=== PATIENT | male | born 1950 | race Caucasian/White ===

== ENCOUNTER 2019-09-30 12:41 | Emergency (ER) | payer OTHER ==
[2019-09-30] MEDS ORDERED: NA CHLORIDE 0.9% 1,000 ML ONE (12:54)
[2019-09-30] MEDS ORDERED: VANCOMYCIN/NS 1 gm 1 GM/250 ML BAG IVPB ONE (13:00)
[2019-09-30 13:09] LABS: Protime INR 1.26
[2019-09-30 13:15] LABS: Urine Blood 1+ (NEG); Urine Glucose NEGATIVE (NEG); Urine Protein 2+ (NEG); Urine Specific Gravity 1.025 (1.005-1.030); Urine pH 5.5 (5.0-7.0)
[2019-09-30 13:16] LABS: Absolute Lymphocytes (CBC) 0.6 K/uL (0.7-4.9); Basophils % 0.2 % (0-1.3); Hematocrit 38.9 % (39.6-49.0); Lymphocytes % 2.2 % (15.3-44.8); MPV 7.9 fL (7.6-11.3); RBC Red Blood Cell Count 3.79 M/uL (4.33-5.43)
[2019-09-30 13:29] LABS: Urine Amorphous Sediment 1+ /HPF (NONE SEEN); Urine Bacteria <20 /HPF (NONE SEEN); Urine Culture Reflex Order NOT NEEDED; Urine Mucus 1+ /HPF (NONE SEEN); Urine RBC <5 /HPF (NONE SEEN)
[2019-09-30 13:31] LABS: Albumin 2.3 g/dL (3.4-5.0); Bilirubin Direct 0.5 mg/dL (0-0.2); Bilirubin Total 1.3 mg/dL (0.2-1.0); CKMB Creatine Kinase MB 6.5 ng/mL (0.3-3.6); Protein, Total 7.2 g/dL (6.4-8.2); Troponin (Emerg Dept Use Only) 0.05 ng/mL (0.0-0.045)
[2019-09-30 13:42] LABS: Blood Morphology Comment NOT SEEN (NOT SEEN); Platelet Estimate INCR
--- NOTE | 2019-09-30 14:18 | RAD REPORT ---
EXAM DESCRIPTION: Anne Single View09/30/2019 1:47 pm CLINICAL HISTORY: Congestion COMPARISON: None FINDINGS: The lungs appear clear of acute infiltrate. The heart is mildly enlarged. Postsurgical changes involve the chest. IMPRESSION: No acute abnormalities displayed
--- NOTE | 2019-09-30 14:53 | RAD REPORT ---
EXAM DESCRIPTION: Nahed Goldberg Left09/30/2019 2:48 pm CLINICAL HISTORY: Left leg pain FINDINGS: No fracture is seen. Soft tissue swelling. No air visualized
--- NOTE | 2019-09-30 14:53 | RAD REPORT ---
EXAM DESCRIPTION: RAD - Tib Fib Right - 09/30/2019 2:48 pm CLINICAL HISTORY: Right leg pain FINDINGS: No fracture is seen. Soft tissue swelling. No air visualized
--- NOTE | 2019-09-30 14:54 | RAD REPORT ---
EXAM DESCRIPTION: RAD - Foot Left 2 View - 09/30/2019 2:48 pm CLINICAL HISTORY: Left Foot pain FINDINGS: No or dislocation fracture is seen. Soft tissue swelling. No air visualized .
--- NOTE | 2019-09-30 14:55 | RAD REPORT ---
EXAM DESCRIPTION: RAD - Foot Right 2 View - 09/30/2019 2:48 pm CLINICAL HISTORY: Right foot pain FINDINGS: No or dislocation fracture is seen. Soft tissue swelling. No air visualized
[2019-09-30] MEDS ORDERED: PIPER/TAZO/NS 3.375gm 3.375 GM/100 ML BAG ONE (14:56)
[2019-09-30] MEDS ORDERED: CLINDAMYCIN 600MG/D5W 600 MG/50 ML BAG IV ONE (14:56)
[2019-09-30 15:05] LABS: Arterial Blood Carboxyhemoglob 1.2 % (0-1.5); Blood Gas Oxyhemoglobin 31.5 % (94-97); Blood O2 Saturation 32.1 % (92-98.5)
--- NOTE | 2019-09-30 17:05 | RAD REPORT ---
EXAM DESCRIPTION: Yanci Ext Angio09/30/2019 3:43 pm CLINICAL HISTORY: Bilateral lower extremity swelling and pain TECHNIQUE: One hundred cc Isovue [address] angiogram of the lower extre mities performed. 3D MIP reconstruction performed All CT scans are performed using dose optimization technique as appropriate and may include automated exposure control or mA/KV adjustment according to patient size. FINDINGS: Mild to moderate calcified plaque abdominal aorta. Moderate calcified plaque common and external iliac arteries. Most of the right superficial femoral and right popliteal arteries are occluded. Collaterals reconsti tute the right posterior tibial, right dorsalis pedis and right peroneal arteries. The arteries are thready Calcified plaque is scattered throughout the left superficial femoral and left popliteal arteries res ulting in several high-grade stenoses. The left posterior tibial and left dorsalis pedis arteries are patent. The left peroneal artery is th ready High-grade stenosis iliac artery Diffuse edema throughout the subcutaneous tissues of lower extremities bilaterally. Small to moderate amount of ascites within the pelvis IMPRESSION: Occlusion of most of the right superficial femoral and right popliteal arteries Calcified plaque resulting in high-grade stenoses of portions of the left superficial femoral and lef t popliteal arteries
--- NOTE | 2019-09-30 17:36 | ER ---
Nurse's Notes [facility] Name: Navi Gutierrez Age: 69 yrs Sex: Male : 1950 Arrival Date: 09/30/2019 Time: 12:47 Bed 2 Private MD: Diagnosis: Sepsis, unspecified organism;Altered mental status, unspecified;Acute embolism and thrombosis of femoral vein-right sided Presentation: 09/29 12:40 Chief complaint: EMS states: found on bathroom floor by brother. Pt is cold and pale. ss Awake, but very weak. Ebola Screen:. Onset of symptoms is unknown. 12:40 Method Of Arrival: EMS: [facility] ss 12:40 Acuity: LATISHA 1 ss 12:40 Chief complaint: EMS states: Pt was hypotensive with SBP 70s, tachycardic in the 120s. sv Coronavirus screen: Surgical mask placed on patient. Patient moved to private room, placed in contact and droplet isolation with eye protection until further assessment. Unknown if any of these apply. Pt is altered. Initial Sepsis Screen: Does the patient meet any 2 criteria? RR > 20 per min. Altered Mental Status. HR > 90 bpm. Yes Does the patient have a suspected source of infection? Yes: Skin breakdown/wound. Risk Assessment: Do you want to hurt yourself or someone else? Unable to obtain. Triage Assessment: 12:40 General: Appears in no apparent distress. uncomfortable, unkempt, Behavior is sv cooperative, drowsy. Pain: Complains of pain in right leg and left leg. Neuro: Level of Consciousness is confused, lethargic, Oriented to person, Weakness in bilateral leg(s). Cardiovascular: Pulses are palpable in right radial artery and left radial artery Edema is 2+ to left midcalf, left ankle, left foot, right midcalf, right ankle and right foot Rhythm is sinus tachycardia. Respiratory: Airway is patent Respiratory effort is labored, with retractions, weak, Respiratory pattern is tachypnea the patient has severe shortness of breath. GI: Abdomen is round distended, Abd is soft and non tender X 4 quads. Derm: Skin with poor turgor Skin is dry, Skin is mottled, pale, Skin temperature is cool Bruising that is dark purple, on right leg and left leg BLE weeping. Musculoskeletal: Swelling present in right leg and left leg. Historical: - Allergies: 13:22 Unable to obtain; sv - PMHx: 13:22 CHF; sv - Immunization history:: Adult Immunizations unknown. - Social history:: Patient/guardian denies using alcohol, street drugs, The patient lives with family, Smoking status: unknown. - Family history:: not pertinent. Screenin:22 Abuse screen: Unable to obtain. Nutritional screening: Unable to obtain . Tuberculosis sv screening: Unable to obtain . Fall Risk No fall in past 12 months (0 pts). Secondary diagnosis (15 points) AMS. IV access (20 points). Ambulatory Aid- None/Bed Rest/Nurse Assist (0 pts). Gait- Normal/Bed Rest/Wheelchair (0 pts) Mental Status- Overestimates/Forgets Limitations (15 pts.). Total Alberto Fall Scale indicates High Risk Score (45 or more points). Fall prevention measures have been instituted. Side Rails Up X 2 Placed Close to Nursing Station Frequent Obs/Assessments Occuring As available patient and family educated on Fall Prevention Program and Strategies. Assessment: 12:57 Reassessment: COVID-19 obtained. sv 13:05 Reassessment: Called Dr Crystal to the room. Discussed possible intubation d/t pt being sv tachycardic, tachypneic, mottled throughout his body, hx of CHF and the amount of fluids to be given to him. Provider does not wish to intubate at this time, will continue to monitor. 14:15 Reassessment: Leg xrays being done at this time. sv 15:25 Reassessment: Informed Dr Crystal that the pt's legs are more edematous than before. sv Pt's fluids have finished infusing. 15:25 General: Appears in no apparent distress. uncomfortable, Behavior is calm, cooperative. sv Pain: Complains of pain in right leg and left leg. Neuro: Level of Consciousness is awake, alert, obeys commands, Oriented to person, place, time. Cardiovascular: Rhythm is sinus tachycardia. Respiratory: Airway is patent Respiratory effort is even, shallow, Respiratory pattern is symmetrical, tachypnea. 16:30 Reassessment: Patient appears in no apparent distress at this time. Patient and/or sv family updated on plan of care and expected duration. Pain level reassessed. Pt's BLE have increased swelling, purple and red discoloration. Dr Crystal informed. 17:22 Reassessment: Patient appears in no apparent distress at this time. Patient and/or sv family updated on plan of care and expected duration. Pain level reassessed. 18:22 Reassessment: Patient appears in no apparent distress at this time. Patient and/or sv family updated on plan of care and expected duration. Pain level reassessed. Pt able to carry more of a conversation with staff and is more alert. Pt stated that it was ok to let his daughter know where he is being transferred. 18:49 Reassessment: Juli Manzo (sister) [phone]. She stated that he is a daily sv alcoholic drinker. 18:58 Reassessment: Report given to [facility]. sv 09/30 11:34 Reassessment: COVID results faxed to [facility] ICU ATTN Eula. ss Vital Signs: 09/29 12:40 BP 103 / 74; Pulse 136; Resp 40; Temp 97.4(TE); Pulse Ox 100% on R/A; ss 13:10 Weight 84.82 kg; ph 13:15 BP 169 / 58; Pulse 127; Resp 42; Temp 99.5(C); Pulse Ox 99% on R/A; sv 13:45 BP 107 / 61; Pulse 121; Resp 36; Pulse Ox 100% on R/A; sv 14:00 BP 110 / 65; Pulse 120; Resp 39; Pulse Ox 100% ; sv 14:30 BP 107 / 66; Pulse 118; Resp 39; Temp 98.9(C); Pulse Ox 100% ; sv 15:00 BP 107 / 70; Pulse 115; Resp 34; Pulse Ox 100% ; sv 15:45 BP 130 / 78; Pulse 117; Resp 35; Temp 99.1(C); Pulse Ox 100% ; sv 16:15 BP 148 / 67; Pulse 119; Resp 37; Pulse Ox 99% ; sv 16:45 BP 117 / 86; Pulse 117; Resp 38; Pulse Ox 98% ; sv 17:00 BP 129 / 82; Pulse 116; Resp 38; Pulse Ox 97% ; sv 17:30 BP 155 / 84; Pulse 118; Resp 39; Pulse Ox 97% ; sv 18:00 BP 176 / 88; Pulse 117; Resp 34; Pulse Ox 97% ; sv 18:33 BP 193 / 82; Pulse 117; Resp 39; Temp 99(C); Pulse Ox 98% ; sv ED Course: 12:40 Arm band placed on right wrist. ss 12:40 Patient has correct armband on for positive identification. Placed in gown. Bed in low ss position. retail experience specialist on. Pulse ox on. NIBP on. 12:47 Patient arrived in ED. em1 12:47 Corey Crystal MD is Attending Physician. ma2 12:47 First set of blood cultures drawn by me. sv 12:48 Murcia cath inserted, using sterile technique, 16 Fr., by ED staff, balloon inflated, to gravity drainage, Patient tolerated well. 12:56 Triage completed. ss 12:57 Second set of blood cultures drawn by me, Urine collected: Murcia catheter specimen, sv redd colored, Flu and/or RSV swab sent to lab. Strep swab sent to lab. 12:59 Inserted saline lock: 18 gauge in right antecubital area, using aseptic technique. ss ,using aseptic technique. By Nichole Ta RN Blood collected. 12:59 Maintain EMS IV. Dressing intact. Good blood return noted. Site clean \T\ dry. Gauge \T\ ss site: 18 gauge in L AC. Patient maintains SpO2 saturation greater than 95% on room air. 13:11 Nichole Ta, RN is Primary Nurse. sv 13:13 Flu Sent. sv 13:18 C-Reactive Protein Sent. sv 13:18 Amylase, Serum Sent. sv 13:18 Basic Metabolic Panel Sent. sv 13:18 Blood Culture Adult (2) Sent. sv 13:18 CBC with Diff Sent. sv 13:18 Ckmb Sent. sv 13:18 CPK Sent. sv 13:18 Lactate Sent. sv 13:18 LFT's Sent. sv 13:18 Lipase Sent. sv 13:41 X-ray(s) taken. sv 13:42 Manual Differential Sent. sv 13:46 Chest Single View XRAY In Process Unspecified. EDMS 14:46 Tib Fib Left XRAY Sent. sv 14:46 Tib Fib Right Sent. sv 14:46 Foot Left 2 View XRAY Sent. sv 14:46 Foot Right 2 View XRAY Sent. sv 14:48 Foot Right 2 View XRAY In Process Unspecified. EDMS 14:48 Foot Left 2 View XRAY In Process Unspecified. EDMS 14:49 Tib Fib Right In Process Unspecified. EDMS 14:49 Tib Fib Left XRAY In Process Unspecified. EDMS 15:44 Lower Ext Angio In Process Unspecified. EDMS 19:16 No provider procedures requiring assistance completed. Patient transferred, IV remains sv in place. intact. Administered Medications: 12:45 Drug: NS 0.9% (30 ml/kg) 30 ml/kg {Note: [address] Crystal.} Route: IV; ph Rate: bolus; Site: left antecubital; 14:00 Follow up: Response: No adverse reaction; IV Status: Completed infusion; IV Intake: sv 2000ml ; Dr Crystal wanted 2L to be given. 13:00 Drug: vancoMYCIN 1 grams Route: IVPB; Infused Over: 2 hrs; Site: left antecubital; sv 15:00 Follow up: Response: No adverse reaction; IV Status: Completed infusion; IV Intake: sv 250ml 13:00 Drug: Cefepime 1 grams Route: IVPB; Rate: 200 ml/hr; Infused Over: 30 mins; Site: right sv antecubital; 13:30 Follow up: Response: No adverse reaction; IV Status: Completed infusion; IV Intake: sv 100ml 15:16 Drug: Clindamycin 600 mg Route: IVPB; Infused Over: 30 mins; Site: right antecubital; sv 15:45 Follow up: Response: No adverse reaction; IV Status: Completed infusion; IV Intake: 50mlsv 15:17 Drug: Zosyn 3.375 grams Route: IVPB; Infused Over: 60 mins; Site: right antecubital; sv 16:15 Follow up: Response: No adverse reaction; IV Status: Completed infusion; IV Intake: sv 100ml 18:21 Drug: Lovenox 1 mg/kg Route: Sub-Q; Site: right lower abdomen; sv 18:32 Follow up: Response: No adverse reaction sv Intake: 13:30 IV: 100ml; Total: 100ml. sv 14:00 IV: 2000ml; Total: 2100ml. sv 15:00 IV: 250ml; Total: 2350ml. sv 15:45 IV: 50ml; Total: 2400ml. sv 16:15 IV: 100ml; Total: 2500ml. sv Outcome: 17:35 ER care complete, transfer ordered by MD. ma2 18:10 Transferred by ground EMS Transfer form completed. X-rays sent w/ patient. Note: sv Report called to [facility] Yrn Cotto to Nichole MARROQUIN 18:10 Condition: stable 18:10 Instructed on the need for transfer. 19:18 Patient left the ED. sv Signatures: Dispatcher [employer] EDNichole Ga RN RN Basilio Renteria em1 Xuan Donahue RN RN Lita Russell RN RN Corey Crystal MD MD ma2 Corrections: (The following items were deleted from the chart) 13:17 12:54 vancoMYCIN 1 grams IVPB in left antecubital over 2 hrs ss sv 13:18 12:52 Cefepime 1 grams IVPB at 200 ml/hr in right antecubital over 30 mins ss sv 15:58 13:15 BP 169 / 58; Pulse 127bpm; Resp 42bpm; Pulse Ox 99% RA; sv sv 15:58 15:45 BP 130 / 78; Pulse 117bpm; Resp 35bpm; Pulse Ox 100%; sv sv 15:58 14:30 BP 107 / 66; Pulse 118bpm; Resp 39bpm; Pulse Ox 100%; sv sv
--- NOTE | 2019-09-30 17:36 | EDPHYS ---
Physician Documentation [facility] Name: Navi Gutierrez Age: 69 yrs Sex: Male : 1950 Arrival Date: 09/30/2019 Time: 12:47 Bed 2 Private MD: ED Physician Corey Crystal HPI: 09/29 14:39 This 69 yrs old Male presents to ER via EMS with complaints of Shortness Of ma2 Breath, Unresponsive. 14:39 This 69 yrs old Male presents to ER via EMS with complaints of bilat. LE pain ma2 and swelling, found unresponsive today. 14:39 Onset: The symptoms/episode began/occurred gradually, 1 week(s) ago. Associated signs ma2 and symptoms: Pertinent negatives: non-productive cough, dizziness, hemoptysis, numbness in extremities, vomiting. Severity of symptoms: At their worst the symptoms were severe in the emergency department the symptoms are unchanged. has been having LE edema and pain for 1 week, did not seek any medical care for that, he was found unresponsive today when ems arrived his BP was 70/40, his mental status improved with IVF here. He has LE swelling and pain . Historical: - Allergies: 13:22 Unable to obtain; sv - PMHx: 13:22 CHF; sv - Immunization history:: Adult Immunizations unknown. - Social history:: Patient/guardian denies using alcohol, street drugs, The patient lives with family, Smoking status: unknown. - Family history:: not pertinent. ROS: 15:29 Unable to obtain ROS due to altered mental status. ma2 17:36 ENT: Negative for injury, pain, and discharge. ma2 Exam: 15:29 Head/Face: Normocephalic, atraumatic. Eyes: Pupils equal round and reactive to light, ma2 extra-ocular motions intact. Lids and lashes normal. Conjunctiva and sclera are non-icteric and not injected. Cornea within normal limits. Periorbital areas with no swelling, redness, or edema. 15:29 Chest/axilla: Normal chest wall appearance and motion. Nontender with no deformity. No lesions are appreciated. Cardiovascular: tachcyardia and bp is now wnl, was hypotensive before ivf started with a normal S1 and S2. No gallops, murmurs, or rubs. Normal PMI, no JVD. No pulse deficits. Respiratory: Lungs have equal breath sounds bilaterally, clear to auscultation and percussion. No rales, rhonchi or wheezes noted. No increased work of breathing, no retractions or nasal flaring. Abdomen/GI: Soft, non-tender, with normal bowel sounds. No distension or tympany. No guarding or rebound. No evidence of tenderness throughout. Skin: Warm, dry with normal turgor. Normal color with no rashes, no lesions, and no evidence of cellulitis. MS/ Extremity: both feet are swollen with tenderness and bullae right toe is purple, both feet are cold and swollen unable to fell pulses.. no crepitations is felt Neuro: Awake and alert, GCS 15, oriented to person, place, time, and situation. Cranial nerves II-XII grossly intact. Motor strength 5/5 in all extremities. Sensory grossly intact. Cerebellar exam normal. Normal gait. 15:29 Constitutional: The patient appears frail, lethargic, in obvious distress, severely distressed, pale, uncomfortable. 17:26 Musculoskeletal/extremity: Calf tenderness, that is severe, of the right lower ma2 extremity, of the left lower extremeity, no palpable pule on right foot, and it is cold both feet are swollen with bolea that is hemorrhagic no crepitations, right toe is necrotic. Vital Signs: 12:40 BP 103 / 74; Pulse 136; Resp 40; Temp 97.4(TE); Pulse Ox 100% on R/A; ss 13:10 Weight 84.82 kg; ph 13:15 BP 169 / 58; Pulse 127; Resp 42; Temp 99.5(C); Pulse Ox 99% on R/A; sv 13:45 BP 107 / 61; Pulse 121; Resp 36; Pulse Ox 100% on R/A; sv 14:00 BP 110 / 65; Pulse 120; Resp 39; Pulse Ox 100% ; sv 14:30 BP 107 / 66; Pulse 118; Resp 39; Temp 98.9(C); Pulse Ox 100% ; sv 15:00 BP 107 / 70; Pulse 115; Resp 34; Pulse Ox 100% ; sv 15:45 BP 130 / 78; Pulse 117; Resp 35; Temp 99.1(C); Pulse Ox 100% ; sv 16:15 BP 148 / 67; Pulse 119; Resp 37; Pulse Ox 99% ; sv 16:45 BP 117 / 86; Pulse 117; Resp 38; Pulse Ox 98% ; sv 17:00 BP 129 / 82; Pulse 116; Resp 38; Pulse Ox 97% ; sv 17:30 BP 155 / 84; Pulse 118; Resp 39; Pulse Ox 97% ; sv 18:00 BP 176 / 88; Pulse 117; Resp 34; Pulse Ox 97% ; sv 18:33 BP 193 / 82; Pulse 117; Resp 39; Temp 99(C); Pulse Ox 98% ; sv MDM: 12:48 Patient medically screened. ma2 15:29 Differential diagnosis: LE infection possible ischemia and neck fasciitis, no mri ma2 available, xray does not show subQ air, discussed with dr. Churchill who recommends ct angio.. patient has severe sepsis and metabolic acidosis, patient needs ICU. Antibiotic administration: zosyn, vanc, clinda . 17:26 Data reviewed: vital signs, nurses notes, EMS record, [facility] records, diagnostic ma2 data from outside facility, old medical records, lab test result(s), EKG. Data interpreted: compliance monitor: rate is 130 beats/min. Post IV fluid administration reassessment for Sepsis: Sepsis focused reassessment complete. Focused assessment performed: September 30, 2019 at 17:27 Heart: Regular rate/rhythm. Tachycardia noted. Lungs: noted to be clear bilaterally. Capillary refill examination performed. Capillary refill noted to be > 2 seconds. Peripheral pulse evaluation performed. Peripheral pulses noted to be 1+ faint. Skin examination performed. Skin noted to be diaphoretic. Mottling noted. Current patient vital signs reviewed: Neuro: Patient's neurological exam has improved from previous exam. Cardio: Cardiovascular exam improved from previous exam. Heart rate and blood pressure have improved. Respiratory: Respiratory exam improved from previous exam. Counseling: I had a detailed discussion with the patient and/or guardian regarding: the historical points, exam findings, and any diagnostic results supporting the discharge/admit diagnosis, radiology results. 17:26 ED course: has complete occlusion of right superficial femoral artery, discussed with ma2 dr. churchill, who recommend transfer for higher level of care as no vascular surgery available in our hospital. patient is stable and improving, started on lovenox and accepted by dr. Fanny Vázquez at [facility].. ED course: lactate improved from 12 to 5. 18:55 ED course: ischemia is likely subacute, as he states this is been going on for 2 weeks. [facility] . 09/29 12:53 Order name: C-Reactive Protein [facility] 09/29 12:53 Order name: Amylase, Serum [facility] 09/29 12:53 Order name: Basic Metabolic Panel [facility] 09/29 12:53 Order name: Blood Culture Adult (2) [facility] 09/29 12:53 Order name: CBC with Diff [facility] 09/29 12:53 Order name: Ckmb [facility] 09/29 12:53 Order name: CPK [facility] 09/29 12:53 Order name: Lactate [facility] 09/29 12:53 Order name: LFT's [facility] 09/29 12:53 Order name: Lipase [facility] 09/29 12:53 Order name: Procalcitonin; Complete Time: 14:18 [facility] 09/29 12:53 Order name: Protime (+inr); Complete Time: 13:35 [facility] 09/29 12:53 Order name: Ptt, Activated; Complete Time: 13:35 [facility] 09/29 12:53 Order name: Troponin (emerg Dept Use Only); Complete Time: 14:18 [facility] 09/29 12:53 Order name: Urine Microscopic Only; Complete Time: 13:35 [facility] 09/29 12:54 Order name: C-Reactive Protein; Complete Time: 14:18 [facility] 09/29 12:55 Order name: Amylase; Complete Time: 14:18 [facility] 09/29 12:55 Order name: Basic Metabolic Panel; Complete Time: 14:18 [facility] 09/29 12:55 Order name: Blood Culture [facility] 09/29 12:55 Order name: CBC with Automated Diff; Complete Time: 14:18 [facility] 09/29 12:55 Order name: CKMB Creatine Kinase MB; Complete Time: 14:18 [facility] 09/29 12:55 Order name: Creatine Phosphokinase; Complete Time: 14:18 [facility] 09/29 12:55 Order name: Lactate; Complete Time: 14:18 [facility] 09/29 12:55 Order name: Liver (Hepatic) Function; Complete Time: 14:18 [facility] 09/29 12:55 Order name: Lipase; Complete Time: 14:18 [facility] 09/29 13:02 Order name: Flu [facility] 09/29 13:02 Order name: Strep; Complete Time: 14:18 [facility] 09/29 13:03 Order name: Influenza Screen (A ; Complete Time: 14:18 [facility] 09/29 13:06 Order name: Urine Dipstick--Ancillary (enter results); Complete Time: 13:35 1 09/29 12:53 Order name: Chest Single View XRAY; Complete Time: 14:18 [facility] 09/29 12:53 Order name: Accucheck; Complete Time: 13:11 [facility] 09/29 12:53 Order name: Cardiac monitoring; Complete Time: 13:11 ga2 09/29 12:53 Order name: EKG - Nurse/Tech; Complete Time: 13:11 [facility] 09/29 12:53 Order name: IV Saline Lock - Large Bore; Complete Time: 13:11 [facility] 09/29 12:53 Order name: Labs collected and sent; Complete Time: 13:12 [facility] 09/29 12:53 Order name: O2 Per Protocol; Complete Time: 13:12 [facility] 09/29 12:53 Order name: O2 Sat Monitoring; Complete Time: 13:12 [facility] 09/29 12:53 Order name: Urine Dipstick-Ancillary (obtain specimen); Complete Time: 13:05 [facility] 09/29 13:02 Order name: Droplet/Contact Precautions; Complete Time: 13:12 [facility] 09/29 13:13 Order name: COVID-19 sv 09/29 13:31 Order name: Manual Differential; Complete Time: 14:18 [facility] 09/29 13:39 Order name: Throat Culture [facility] 09/29 14:04 Order name: Foot Right 2 View XRAY; Complete Time: 15:28 [facility] 09/29 14:04 Order name: Foot Left 2 View XRAY; Complete Time: 15:28 [facility] 09/29 14:10 Order name: Tib Fib Right; Complete Time: 15:28 [facility] 09/29 14:11 Order name: Tib Fib Left XRAY; Complete Time: 15:28 [facility] 09/29 14:26 Order name: ABG: venous please; Complete Time: 15:28 [facility] 09/29 14:37 Order name: NPO; Complete Time: 14:45 [facility] 09/29 15:09 Order name: Lower Ext Angio; Complete Time: 17:24 EDPA 09/29 16:41 Order name: Lactate Sepsis 2 HR Follow-up; Complete Time: 16:42 EDMS Administered Medications: 12:45 Drug: NS 0.9% (30 ml/kg) 30 ml/kg {Note: [address] Crystal.} Route: IV; ph Rate: bolus; Site: left antecubital; 14:00 Follow up: Response: No adverse reaction; IV Status: Completed infusion; IV Intake: sv 2000ml ; Dr Crystal wanted 2L to be given. 13:00 Drug: vancoMYCIN 1 grams Route: IVPB; Infused Over: 2 hrs; Site: left antecubital; sv 15:00 Follow up: Response: No adverse reaction; IV Status: Completed infusion; IV Intake: sv 250ml 13:00 Drug: Cefepime 1 grams Route: IVPB; Rate: 200 ml/hr; Infused Over: 30 mins; Site: right sv antecubital; 13:30 Follow up: Response: No adverse reaction; IV Status: Completed infusion; IV Intake: sv 100ml 15:16 Drug: Clindamycin 600 mg Route: IVPB; Infused Over: 30 mins; Site: right antecubital; sv 15:45 Follow up: Response: No adverse reaction; IV Status: Completed infusion; IV Intake: 50mlsv 15:17 Drug: Zosyn 3.375 grams Route: IVPB; Infused Over: 60 mins; Site: right antecubital; sv 16:15 Follow up: Response: No adverse reaction; IV Status: Completed infusion; IV Intake: sv 100ml 18:21 Drug: Lovenox 1 mg/kg Route: Sub-Q; Site: right lower abdomen; sv 18:32 Follow up: Response: No adverse reaction sv Disposition: 17:26 Critical Care:. ma2 Disposition: 09/30/19 17:35 Transfer ordered to Other Acute Care Facility. Diagnosis are Sepsis, unspecified organism, Altered mental status, unspecified, Acute embolism and thrombosis of femoral vein - right sided . - Reason for transfer: Higher level of care. - Accepting physician is Dr. áVzquez. - Condition is Critical. - Problem is new. - Symptoms are unchanged. Critical care time excluding procedures: 17:26 Critical care time: Bedside Care: 35 minutes, Consultation: 10 minutes, Family ma2 Intervention: 5 minutes. Total time: 50 minutes Signatures: Dispatcher [employer] EDPA Nichole Ta RN RN Xuan Donahue RN RN Lita Russell RN RN Corey Crystal MD MD ga2 Corrections: (The following items were deleted from the chart) 13:43 13:02 Document PUI# ordered. ma2 13:43 13:02 [facility] [phone]/ ordered. ma2 14:10 14:05 Tib Fib Right W Compar+RAD.RAD.BRZ ordered. EDPA EDMS 15:30 14:39 has been having LE edema and pain for 1 week, did not seek any medical care for ma2 that, he was found unresponsive today when ems arrived his BP was 70/40, his mental status improved with IVF here. He has LE necrotizing fasciitis. . ma2 19:18 17:35 09/30/2019 17:35 Transfer ordered to Other Acute Care Facility. Diagnosis is sv Sepsis, unspecified organism; Altered mental status, unspecified; Acute embolism and thrombosis of femoral vein - right sided . Reason for transfer: Higher level of care. Accepting physician is Dr. Vázquez. Condition is Critical. Problem is new. Symptoms are unchanged. ma2
[2019-09-30] MEDS ORDERED: ENOXAPARIN 80 MG/0.8 ML SQ ONE (18:15)
[2019-09-30 19:40] VITALS: BP 193/82; TEMP 99; O2SAT 98
== END 2019-09-30 19:18 ==
LOC: ER 12:41
DX: A41.9 Sepsis, unspecified organism (principal); I82.411 Acute embolism and thrombosis of right femoral vein; Z20.828 Contact with and (suspected) exposure to other viral communicable diseases; I50.9 Heart failure, unspecified
CPT/HCPCS: 96365; 96367; 96368; 93005 ×2; 87040 ×2; 87070; 85025; 80048; 36415; 82150; 82550; 85610; 80076; 87081; 83605 ×2; 85730; 84484; 82553; 83690; 84145; 86140; 87804 ×2; 73706; 71045; 73620 ×2; 73590 ×2; 82805; 51702; 96372; 99291; 99292; 96366; U0002; Q9967; J2543; J1650; J3370; J7030; 81003; 81015; 82947